=== PATIENT | female | born 2000 | race African-American/Black ===

== ENCOUNTER 2021-07-15 16:43 | Emergency (ER) | payer OTHER ==
--- NOTE | 2021-07-15 17:30 | ED Physician Documentation ---
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 She was sent from [facility] down to [facility], where they did a lumbar puncture and MRI of her head. She states that they told her she had elevated pressure at 28 and normal being 20. She states that since then her vision changes have resolved, she is no longer having episodes of tunnel vision or blurred vision. When she got home yesterday she went in to her quarters and she went to stand up and developed a severe headache. She has had to lay down or have a headache when she is standing. She has had to hold her urine so that she did not have to get out of bed the headache was that bad. She has had some vomiting associated with this. She is comfortable if she is laying flat. Review of Systems Constitutional: denies: Fever, Chills, Myalgias Eyes: denies: Loss of vision, Decreased vision, Photophobia, Discharge, Irritation Ears: denies: Ear pain Nose: denies: Congestion Throat: denies: Sore throat Cardiac: denies: Chest pain / pressure Respiratory: denies: Cough GI: reports: Nausea, Vomiting. denies: Abdominal Pain, Constipation, Diarrhea : denies: Dysuria, Frequency Skin: denies: Rash Musculoskeletal: reports: Neck pain, Back pain Neurologic: reports: Headache. denies: Generalized weakness, Focal weakness, Numbness, Altered mental status, Head injury, LOC PD PAST MEDICAL HISTORY - Allergies Allergies/Adverse Reactions: Allergies Allergy/AdvReac Type Severity Reaction Status Date / Time No Known Drug Allergies Allergy Verified 07/15/21 16:58 PD ED PE NORMAL - Vitals Vital signs reviewed: Yes (Hypertensive mild) - General General: Alert and oriented X 3, No acute distress, Well developed/nourished, Other (Overweight 21-year-old female laying prone on the gurney.) - HEENT HEENT: Atraumatic, PERRL, EOMI - Neck Neck: Supple, no meningeal sign, No bony TTP - Cardiac Cardiac: RRR, No murmur - Respiratory Respiratory: No respiratory distress, Clear bilaterally - Abdomen Abdomen: Normal bowel sounds, Soft, Non tender, Non distended, No organomegaly - Back Back: No CVA TTP, No spinal TTP - Derm Derm: Normal color, Warm and dry, No rash - Extremities Extremities: No deformity, No edema - Neuro Neuro: Alert and oriented X 3, 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 ) ED course: 21-year-old female with a spinal tap done 3 days ago presents with spinal headache and vomiting and she is seen by the anesthesiologist Micheal Iglesias who is able to provide a blood patch with resolution of the patient's symptoms. She still feels she is a bit dehydrated she has been vomiting she is administered a liter of saline as well. Departure - Departure Disposition: 01 Home, Self Care Clinical Impression: Spinal puncture headache, Dehydration Condition: Stable Instructions: ED Dehydration, ED Headache Post Spinal Tap W Patch Follow-Up: GINO MULLER DO [Primary Care Provider] -
[2021-07-15] MEDS ORDERED: SODIUM CHLORIDE 0.9% 1,000 ML IV STA (18:32)
--- NOTE | 2021-07-15 18:40 | CONSULTATION NOTE ---
Consultation Report: 21 year old female presents with severe headache after lumbar puncture. She reports headache began about 12 hours after lumbar puncture and resolves with supine position. She denies any significant medical history. Discussed risks and benefits of epidural blood patch and she wishes to proceed with EBP. She was placed in a sitting position and her back was prepped with betadine. The L4-L5 interspace was localized with 3ml of 1% lidocaine. A 17G Tuohy needle was inserted with KELLEY at 7cm. A total of 20ml of sterile blood was injected. Patient reports her headache has improved significantly and is able to stay in a seated position without difficulty. Update was given to Dr. Colvin.
[2021-07-15 19:26] VITALS: BP 127/61
== END 2021-07-15 19:40 | disposition home or self-care (01) ==
LOC: ED 16:43
DX: G97.1 Other reaction to spinal and lumbar puncture (principal); E86.0 Dehydration
CPT/HCPCS: 62273; 80053; 83690; 85025; 99283